=== PATIENT | female | born 1965 | race Caucasian/White ===

== ENCOUNTER 2017-04-13 01:17 | Emergency (ER) | payer MEDICAID ==
[~2017-04-13] VITALS: Ht 162.6 cm; Wt 91.0 kg
[~2017-04-13 01:17] MED LIST: AMLO2.5T45 PO; BENA20TA3 PO
[2017-04-13 04:50] VITALS: BP 144/74
[2017-04-13] MEDS ORDERED: IBUPROFEN 600MG TABLET PO ONE (07:45)
== END 2017-04-13 08:21 | disposition home or self-care (01) ==
LOC: ER 01:42
DX: S93.401A Sprain of unspecified ligament of right ankle, initial encounter (principal); I10 Essential (primary) hypertension; W19.XXXA Unspecified fall, initial encounter; Y93.89 Activity, other specified; Y92.89 Other specified places as the place of occurrence of the external cause; Y99.9 Unspecified external cause status
CPT/HCPCS: 73610; 73630; 99284